=== PATIENT | female | born 1995 | race Two or more races ===

== ENCOUNTER 2023-07-02 14:20 | Outpatient (REF) | payer MEDICAID, OTHER, SELFPAY ==
--- NOTE | ~2023-07-02 | XR_ITS ---
EXAMINATION: XR LUMBOSACRAL SPINE CLINICAL INFORMATION: Acute low back pain COMPARISON: None available. TECHNIQUE: Three views of the lumbosacral spine. FINDINGS: There is narrowing of the L5-S1 disc space. No fracture or destructive process or alignment abnormality. SI joints symmetric. XR/XR lumbar spine 2-3V IMPRESSION: No acute findings.
== END 2023-07-02 14:21 | disposition home or self-care (01) ==
LOC: HO.HHCX 14:20
PROVIDERS: Visit Provider Family Medicine
DX: M54.50 Low back pain, unspecified (principal)
CPT/HCPCS: 72100

== ENCOUNTER 2023-11-09 10:37 | Outpatient (REF) | payer MEDICAID, OTHER, SELFPAY ==
[2023-11-09 12:46] LABS: Estimated Average Glucose 103 mg/dL; Hemoglobin A1c % 5.2 % (<6.0)
[2023-11-09 15:15] LABS: HCG Quantitative < 2 mIU/mL; TSH reflex Free T4 1.74 uIU/mL (0.32-4.0)
[2023-11-10 23:54] LABS: C. trachomatis RNA TMA NOT DETECTED (NOT DETECTED); Candida glabrata RNA NOT DETECTED (NOT DETECTED); Candida species RNA NOT DETECTED (NOT DETECTED); N. gonorrhoeae RNA TMA NOT DETECTED (NOT DETECTED); Trichomonas vaginalis RNA NOT DETECTED (NOT DETECTED)
== END 2023-11-09 10:38 | disposition home or self-care (01) ==
LOC: HO.HHCLNP 10:37
PROVIDERS: Visit Provider Advanced Practice Midwife
DX: N89.8 Other specified noninflammatory disorders of vagina (principal); N92.6 Irregular menstruation, unspecified; Z83.3 Family history of diabetes mellitus
CPT/HCPCS: 36415; 81513; 83036; 84443; 84702; 87481; 87491; 87591; 87661

== ENCOUNTER 2023-12-25 11:10 | Outpatient (REF) | payer MEDICAID, OTHER, SELFPAY ==
[2023-12-25 13:01] LABS: MANUAL DIFF FLAG NO
[2023-12-25 13:22] LABS: Basophils Percent Auto 0.3 % (0-2); Eosinophils Absolute Auto 0.2 X10*3/uL (0.0-0.4); Eosinophils Percent Auto 2.6 % (0-4); Hematocrit 39.1 % (37.0-47.0); Hemoglobin 13.4 g/dl (12.0-16.0); Imm Gran Abs Auto 0.02 X10*3/uL (0.00-0.03); Imm Gran Pct Auto 0.3 % (0.0-0.4); Lymphocytes Absolute Auto 2.2 X10*3/uL (1.2-4.9); Lymphocytes Percent Auto 33.7 % (20-40); Mean Corpuscular HGB Conc 34.3 g/dl (31.0-35.0); Mean Corpuscular Hemoglobin 30.9 pg (27.0-33.0); Mean Corpuscular Volume 90.1 fL (80.0-98.0); Mean Platelet Volume 10.9 fL (9.4-12.3); Monocytes Absolute Auto 0.4 X10*3/uL (0.1-1.2); Neutrophils Absolute Auto 3.7 x10*3/uL (2.0-8.3); Neutrophils Percent Auto 57.1 % (45-73); Platelet Count 266 X10*3/uL (160-400); Red Blood Count 4.34 X10*6/uL (4.20-5.50); Red Cell Distribution Width 12.6 % (11.0-16.0); White Blood Count 6.5 X10*3/uL (4.8-10.8)
[2023-12-25 13:34] LABS: Alanine Aminotransferase 25 U/L (0-31); Albumin Level 4.1 g/dL (3.5-5.0); Alkaline Phosphatase 79 U/L (39-117); Aspartate Amino Transferase 23 U/L (5-31); Bilirubin Direct 0.1 mg/dL (0.0-0.5); Bilirubin Total 0.4 mg/dL (0.0-1.0); Iron 132 mcg/dL (30-160); Percent Iron Saturation 44 % (15-50); Total Iron Binding Capacity 300 mcg/dL (228-428); Total Protein 7.6 g/dL (6.5-8.0); Unsaturated Iron Binding 168 ug/dL
[2023-12-28 08:50] LABS: HIV AB/AG Nonreactive (Nonreactive); HIV Num 1 0.05 S/CO (0.00-0.99); ~HepC Num1 0.18 S/CO (0.00-0.79); ~Hepatitis C Antibody Nonreactive (Nonreactive)
== END 2023-12-25 11:11 | disposition home or self-care (01) ==
LOC: HO.HHCL 11:10
PROVIDERS: Visit Provider Nurse Practitioner Family
DX: Z00.00 Encounter for general adult medical examination without abnormal findings (principal); E66.9 Obesity, unspecified; R53.83 Other fatigue
CPT/HCPCS: 36415; 80076; 83540; 85025; 86803; 87389

== ENCOUNTER 2024-03-04 10:02 | Outpatient (REF) | payer MEDICAID, SELFPAY ==
--- NOTE | ~2024-03-04 | XR_ITS ---
EXAMINATION: XR LUMBOSACRAL SPINE CLINICAL INFORMATION: Acute left-sided low back pain with bilateral sciatica. COMPARISON: 07/02/2023 TECHNIQUE: Three views of the lumbosacral spine. FINDINGS: Some minimal degenerative changes are present with some mild narrowing at L4-L5 and L5-S1 similar to 07/02/2023. The vertebral bodies and posterior elements are normal. The disc spaces are otherwise preserved and the vertebral alignment is normal. The paraspinal soft tissues are normal. XR/XR lumbar spine 2-3V IMPRESSION: Mild degenerative changes at L4-L5 and L5-S1. Electronically signed by: Jericho Ayala MD 04/21/2024 09:58 PM EDT RP
== END 2024-03-04 10:03 | disposition home or self-care (01) ==
LOC: HO.HHCX 10:02
PROVIDERS: Visit Provider Internal Medicine
DX: M54.42 Lumbago with sciatica, left side (principal); M54.41 Lumbago with sciatica, right side
CPT/HCPCS: 72100

== ENCOUNTER 2024-05-16 17:20 | Outpatient (REF) | payer MEDICAID, SELFPAY ==
[2024-05-17 04:58] LABS: CT PCR NOT DETECTED (Not Detect.); NG PCR NOT DETECTED (Not Detect.)
[2024-05-17 10:33] LABS: Bacterial Vaginosis PCR NEGATIVE (Negative); Candida Group PCR NOT DETECTED (Not Detect); Candida glab krusei PCR NOT DETECTED (Not Detect); Trichomonas vaginalis PCR NOT DETECTED (Not Detect)
== END 2024-05-16 17:21 | disposition home or self-care (01) ==
LOC: HO.HHCLNP 17:20
PROVIDERS: Visit Provider Advanced Practice Midwife
DX: N89.8 Other specified noninflammatory disorders of vagina (principal); Z11.3 Encounter for screening for infections with a predominantly sexual mode of transmission
CPT/HCPCS: 0352U; 87491; 87591

== ENCOUNTER 2024-08-29 17:49 | Outpatient (REF) | payer MEDICAID, SELFPAY ==
[2024-08-30 05:50] LABS: CT PCR NOT DETECTED (Not Detect.); NG PCR NOT DETECTED (Not Detect.)
[2024-08-30 13:07] LABS: Bacterial Vaginosis PCR POSITIVE (Negative); Candida Group PCR NOT DETECTED (Not Detect); Candida glab krusei PCR NOT DETECTED (Not Detect); Trichomonas vaginalis PCR NOT DETECTED (Not Detect)
== END 2024-08-29 17:50 | disposition home or self-care (01) ==
LOC: HO.HHCLNP 17:49
PROVIDERS: Visit Provider Nurse Practitioner Family
DX: N89.8 Other specified noninflammatory disorders of vagina (principal); Z11.3 Encounter for screening for infections with a predominantly sexual mode of transmission
CPT/HCPCS: 81515; 87491; 87591

== ENCOUNTER 2025-02-13 09:47 | Outpatient (REF) | payer MEDICAID, SELFPAY ==
--- OUTSIDE RECORDS SUMMARY | 2025-02-13 10:16 | XMS_ITS | Clinical Summary ---
Author Organization [facility] Address [address] [place] [address] Care Team Providers Care Cold Reduction Roller Name Role Phone Rebecca Romeo Primary Care Provider [phone] Allergies No known active allergies Medications No known medications Social History Tobacco Use Types Packs/Day Years Used Date Smoking Tobacco: Never Assessed Comments Unknown Sex and Gender Information Value Date Recorded Sex Assigned at Female 08/04/2024 1:32 PM EST Legal Sex Female 4:16 PM EST Gender Identity Not on file Sexual Orientation Not on file Last Filed Vital Signs Vital Sign Reading Time Taken Comments Blood Pressure 97/65 08/08/2024 11:23 AM EST Pulse 64 08/08/2024 11:23 AM EST Temperature - - Respiratory Rate 18 08/08/2024 11:23 AM EST Oxygen Saturation 98% 08/08/2024 11:23 AM EST Inhaled Oxygen Concentration - - Weight - - Height - - Body Mass Index - - Plan of Treatment Health Maintenance Due Date Last Done Comments Pap Smear 1995 Varicella Vaccines (1 of 2 - 13+ 2-dose series) 2008 Hepatitis B Vaccines (1 of 3 - 19+ 3-dose series) 2014 DTaP,Tdap,and Td Vaccines (1 - Tdap) 2017 COVID-19 Vaccine ( - 2023-2 5 season) 2024 Alcohol/Substance Use Screening 08/17/2024 Depression Screening and Follow-Up 08/17/2024 Social Drivers of Health Annual Screening 08/17/2024 Influenza Vaccine (Season Ended) 2025 RSV Vaccine (60+ years old and patients) (1 - 1-dose 75+ series) 2070 HIV Screening Completed 12/25/2023, 12/25/2023 Hepatitis C Screening Completed 12/25/2023 Pneumococcal Vaccine: Pediatric (0-5 Years) and At-Risk Patients (6-50 Years) Aged Out No longer eligible based on patient's age to complete this topic Insurance [facility]/FREE CARE Care Teams Cold Reduction Roller Relationship Specialty Start Date End Date Rebecca Romeo [address] [place] [id number] PCP - General Family Medicine 05/04/24
[2025-02-13 11:07] LABS: MANUAL DIFF FLAG NO
[2025-02-13 11:21] LABS: Basophils Percent Auto 0.3 % (0-2); Eosinophils Absolute Auto 0.1 X10*3/uL (0.0-0.4); Eosinophils Percent Auto 2.1 % (0-4); Hematocrit 35.5 % (37.0-47.0); Hemoglobin 12.3 g/dl (12.0-16.0); Imm Gran Abs Auto 0.01 X10*3/uL (0.00-0.03); Imm Gran Pct Auto 0.2 % (0.0-0.4); Lymphocytes Absolute Auto 1.9 X10*3/uL (1.2-4.9); Lymphocytes Percent Auto 33.4 % (20-40); Mean Corpuscular HGB Conc 34.6 g/dl (31.0-35.0); Mean Corpuscular Hemoglobin 30.9 pg (27.0-33.0); Mean Corpuscular Volume 89.2 fL (80.0-98.0); Mean Platelet Volume 11.3 fL (9.4-12.3); Monocytes Absolute Auto 0.4 X10*3/uL (0.1-1.2); Monocytes Percent Auto 6.6 % (2-11); Neutrophils Absolute Auto 3.3 x10*3/uL (2.0-8.3); Neutrophils Percent Auto 57.4 % (45-73); Platelet Count 232 X10*3/uL (160-400); Red Blood Count 3.98 X10*6/uL (4.20-5.50); Red Cell Distribution Width 12.8 % (11.0-16.0); White Blood Count 5.7 X10*3/uL (4.8-10.8)
[2025-02-13 11:56] LABS: TSH reflex Free T4 1.43 uIU/mL (0.32-4.0)
[2025-02-16 00:04] LABS: C. trachomatis RNA TMA NOT DETECTED (NOT DETECTED); N. gonorrhoeae RNA TMA NOT DETECTED (NOT DETECTED)
[2025-02-16 00:09] LABS: Trichomonas (NAAT) NOT DETECTED (NOT DETECTED)
[2025-02-20 08:28] LABS: HPV Genotype 16 Negative (Negative); HPV Genotype 18 Negative (Negative); HPV High Risk Positive (Negative)
== END 2025-02-13 09:48 | disposition home or self-care (01) ==
LOC: HO.HHCL 09:47
PROVIDERS: PCP Nurse Practitioner Family; Visit Provider Nurse Practitioner Family
DX: Z12.4 Encounter for screening for malignant neoplasm of cervix (principal); N92.6 Irregular menstruation, unspecified
CPT/HCPCS: 36415; 84443; 85025; 87491; 87591; 87626; 87661; 88175

== ENCOUNTER 2025-03-13 10:22 | Outpatient (REF) | payer MEDICAID, OTHER, SELFPAY ==
--- OUTSIDE RECORDS SUMMARY | 2025-03-13 11:29 | XMS_ITS | Encounter Summary ---
Author Organization [facility] Address [address] [place] [address] Care Team Providers Care Salesperson Fashion Accessories Name Role Phone Rebecca Romeo Primary Care Provider [phone] Reason for Visit * Reason Onset Date Comments PAC Appt Request - New 02/24/2025 Abnormal Pap Smear 02/24/2025 Colposcopy 02/24/2025 PAC Surgery/procedure Scheduling 02/24/2025 Encounter Details Date Type Department Care Team (Late st Contact Info) Description 02/24/2025 Telephone [facility] Obstetrics and Gynecology [address] [place] [address] Image Assembler: Evelina Velez Telephone Intake, Staff PAC Appt Request - New; Abnormal Pap Smear; Colposcopy; PAC Surgery/procedure Scheduling Social History Tobacco Use Types Packs/Day Years Used Date Smoking Tobacco: Never Assessed Comments Unknown Sex and Gender Information Value Date Recorded Sex Assigned at Female 08/04/2024 1:32 PM EST Legal Sex Female 4:16 PM EST Gender Identity Not on file Sexual Orientation Not on file documented as of this encounter Miscellaneous Notes * Telephone Encounter - Kenia Albert - 03/06/2025 4:36 PM EDT Colpo scheduled for 04/13/2025 * Telephone Encounter - Velma Kaur - 03/06/2025 9:38 AM EDT Patient is calling to schedule an appointment PAC unable to schedule DX ASCUS with positive high risk HPV cervical She is looking to schedule a colposcopy Best number [phone] Please call with a utility sales representative * Telephone Encounter - Vaishnavi Gavin - 02/24/2025 1:09 PM EDT PAC unable to schedule referral per DT, abnormal pap, please call patient with interp to schedule. documented in this encounter Plan of Treatment Upcoming Encounters Date Type Department Care Team (Late st Contact Info) Description 04/13/2025 1:45 PM EDT Procedure visit [facility] Obstetrics and Gynecology [address] [place] [address] Image Assembler: Sonali De Jesus MD [address] [place] [address] documented as of this encounter Visit Diagnoses Not on filedocumented in this encounter Care Teams Salesperson Fashion Accessories Relationship Specialty Start Date End Date Rebecca Romeo [address] [place] [address] PCP - General Family Medicine 05/04/24 documented as of this encounter
[2025-03-13 12:03] LABS: Alanine Aminotransferase 20 U/L (0-31); Albumin Level 4.2 g/dL (3.5-5.0); Alkaline Phosphatase 104 U/L (39-117); Aspartate Amino Transferase 24 U/L (5-31); Estimated Glomerular Filt Rate > 60; Total Protein 7.1 g/dL (6.5-8.0)
[2025-03-13 12:31] LABS: Syphilis Screen Nonreactive (Nonreactive)
[2025-03-13 14:20] LABS: HBS Num1 0.68 mIU/mL (0-7.99); HBc Num1 0.27 S/CO (0.00-0.79); HBsAGNum1 0.35 S/CO (0.00-0.99); HIV Num 1 0.10 S/CO (0.00-0.99); Hepatitis B Surface Antigen Negative (Negative); ~HepC Num1 0.20 S/CO (0.00-0.79); ~Hepatitis B Surface Antibody NONREACTIVE (Nonreactive); ~Hepatitis C Antibody Nonreactive (Nonreactive)
== END 2025-03-13 10:23 | disposition home or self-care (01) ==
LOC: HO.HHCL 10:22
PROVIDERS: PCP Nurse Practitioner Family; Visit Provider Advanced Practice Midwife
DX: Z11.3 Encounter for screening for infections with a predominantly sexual mode of transmission (principal); Z11.4 Encounter for screening for human immunodeficiency virus [HIV]; Z11.59 Encounter for screening for other viral diseases; Z91.89 Other specified personal risk factors, not elsewhere classified; Z79.899 Other long term (current) drug therapy
CPT/HCPCS: 36415; 80076; 82565; 86704; 86706; 86780; 86803; 87340; 87389

== ENCOUNTER 2025-03-28 14:05 | Outpatient (REF) | payer MEDICAID, OTHER, SELFPAY ==
--- NOTE | ~2025-03-28 | US_ITS ---
CLINICAL HISTORY: irregular menses , copper iud Ultrasound of female pelvis Comparison: None provided Technique: Grayscale ultrasound with assistance of color Doppler. Transabdominal scanning performed for overall anatomy. Transvaginal scanning performed for better anatomic delineation. Findings: Anteverted uterus measures 7.7 x 3.8 x 5.0 cm. Homogeneous myometrium, no focal lesion is seen. Unremarkable endometrium but difficult to measure due to IUD, IUD is properly positioned in the endometrium. Normal cervix. Normal right ovary, 2.9 x 1.9 x 1.8 cm. No abnormal vascular flow. Normal left ovary, 1.3 x 2.0 x 1.2 cm. No abnormal vascular flow. No free fluid in the pelvis. Impression: Normal exam. Satisfactory position of IUD. This document has been electronically signed by: Ramona Yi MD on 03/29/2025 10:10:15
--- OUTSIDE RECORDS SUMMARY | 2025-03-28 15:05 | XMS_ITS | Encounter Summary ---
Author Organization [facility] Address [address] [place] [address] Care Team Providers Care Batchmaker Name Role Phone Rebecca Romeo Primary Care Provider [phone] Reason for Visit * Reason Onset Date Comments PAC Appt Request - New 02/24/2025 Abnormal Pap Smear 02/24/2025 Colposcopy 02/24/2025 PAC Surgery/procedure Scheduling 02/24/2025 Encounter Details Date Type Department Care Team (Late st Contact Info) Description 02/24/2025 Telephone [facility] Obstetrics and Gynecology [address] [place] [address] Geology Technician: Evelina Velez Telephone Intake, Staff PAC Appt [...] looking to schedule a colposcopy Best number [phone] Please call with a certified detention deputy * Telephone Encounter - Vaishnavi Gavin - 02/24/2025 1:09 PM EDT PAC unable to schedule referral per DT, abnormal pap, please call patient with interp to schedule. documented in this encounter Plan of Treatment Upcoming Encounters Date Type Department Care Team (Late st Contact Info) Description 04/13/2025 1:45 PM EDT Procedure visit [facility] Obstetrics and Gynecology [address] [place] [address] Geology Technician: Sonali De Jesus MD [address] [place] [address] documented as of this encounter Visit Diagnoses Not on filedocumented in this encounter Care Teams Batchmaker Relationship Specialty Start Date End Date Rebecca Romeo [address] [place] [address] PCP - General Family Medicine 05/04/24 documented as of this encounter
== END 2025-03-28 14:06 | disposition home or self-care (01) ==
LOC: HO.US 14:05
PROVIDERS: PCP Nurse Practitioner Family; Visit Provider Nurse Practitioner Family
DX: N92.6 Irregular menstruation, unspecified (principal); Z97.5 Presence of (intrauterine) contraceptive device
CPT/HCPCS: 76830; 76856

== ENCOUNTER → 2025-03-28 14:08 | Outpatient (BNV) | payer SELFPAY | PROVIDERS: PCP Nurse Practitioner Family; Visit Provider Radiology Diagnostic Radiology | DX: N92.6 Irregular menstruation, unspecified (principal) | CPT/HCPCS: 76830; 76856 ==